=== PATIENT | female | born 1970 | race Caucasian/White ===

== ENCOUNTER 2016-10-04 20:11 | Emergency (ER) | payer OTHER ==
[2016-10-04 20:25] VITALS: TEMP 98.1; BMI 23.0
--- NOTE | 2016-10-04 22:22 | PDOC ---
History of Present Illness - General History Source: Patient <Jeffry Hamilton - Last Filed: 10/05/16 06:13> - General History Source: Patient Exam Limitations: No Limitations - History of Present Illness Initial Comments: 10/04/16 22:52 The patient is a 45-year-old female, with a significant past medical history of hypothyroidism (on Synthroid), who presents to the ED with 10 days of headache and high blood pressure today. The patient states that her headache pain is sometimes felt in her sinuses or in the back of her eyes; most of the time the pain is right-sided. Pts headache is accompanied by occasional dizziness and blurred vision. She reports taking excedrin with no relief of her symptoms. Pt went to doctors office today but he was not in. Hospital staff took her BP and sent to the pt to the ED to get an outpatient CT scan. Pt was discharged from [facility] with a prescription for 5mg of amlodipine. Pt checked her BP while at the pharmacy and noted it to be 202/112. Pt reported back to the ED for further evaluation. Upon examination, patients BP was noted to be 194/99. The patient denies any fever, chills, nausea, vomiting, diarrhea, or abdominal pain. The patient denies any numbness or tingling in her extremities. <Cara Betancur - Last Filed: 10/05/16 07:00> - General Chief Complaint: Blood Pressure Problem Stated Complaint: BLOOD PRESSURE PROBLEM Time Seen by Provider: 10/04/16 21:54 Past History - Past Medical History Hypercholesterolemia: Yes (Borderline) Kidney Stones: Yes Seizures: Yes Thyroid Disease: Yes Other medical history: Grave's disease - Surgical History Cholecystectomy: Yes - Psycho/Social/Smoking Cessation Hx Anxiety: No Suicidal Ideation: No Smoking History: Never smoked Information on smoking cessation initiated: No Hx Alcohol Use: No Drug/Substance Use Hx: No Substance Use Type: None <Jeffry Hamilton - Last Filed: 10/05/16 06:13> <Cara Betancur - Last Filed: 10/05/16 07:00> - Past Medical History Allergies/Adverse Reactions: Allergies Allergy/AdvReac Type Severity Reaction Status Date / Time No Known Allergies Allergy Verified 05/12/14 07:10 Home Medications: Ambulatory Orders Levothyroxine [Synthroid -] 50 mcg PO DAILY@0700 #30 tablet 05/14/14 Amlodipine Besylate 5 mg PO DAILY 10/04/16 Oxycodone HCl/Acetaminophen [Percocet 5-325 mg Tablet] 1 - 2 tab PO Q6H #20 tablet MDD Khari Hutsonle4 10/05/16 Review of Systems - Review of Systems Able to Perform ROS?: Yes Comments:: 10/04/16 22:54 CONSTITUTIONAL: Absent: fever, chills, diaphoresis, generalized weakness, malaise, loss of appetite HEENT: Present: blurred vision Absent: rhinorrhea, nasal congestion, throat pain, throat swelling, difficulty swallowing, mouth swelling, ear pain, eye pain CARDIOVASCULAR: Absent: chest pain, syncope, palpitations, irregular heart rate, lightheadedness , peripheral edema RESPIRATORY: Absent: cough, shortness of breath, dyspnea with exertion, orthopnea, wheezing, stridor, hemoptysis GASTROINTESTINAL: Absent: abdominal pain, abdominal distension, nausea, vomiting, diarrhea, constipation, melena, hematochezia GENITOURINARY: Absent: dysuria, frequency, urgency, hesitancy, hematuria, flank pain, genital pain MUSCULOSKELETAL: Absent: myalgia, arthralgia, joint swelling SKIN: Absent: rash, itching, pallor HEMATOLOGIC/IMMUNOLOGIC: Absent: easy bleeding, easy bruising, lymphadenopathy, frequent infections ENDOCRINE: Absent: unexplained weight gain, unexplained weight loss, heat intolerance, cold intolerance NEUROLOGIC: Present: headache, dizziness Absent: focal weakness or paresthesias, unsteady gait, seizure, mental status changes, bladder or bowel incontinence PSYCHIATRIC: Absent: anxiety, depression, suicidal or homicidal ideation, hallucinations. <Cara Betancur - Last Filed: 10/05/16 07:00> *Physical Exam - Vital Signs Last Vital Signs Temp Pulse Resp BP Pulse Ox 98.1 F 85 18 182/103 99 10/04/16 20:22 10/04/16 20:22 10/04/16 20:22 10/04/16 20:22 10/04/16 20:22 <Jeffry Hamilton - Last Filed: 10/05/16 06:13> - Vital Signs Last Vital Signs Temp Pulse Resp BP Pulse Ox 98.1 F 85 18 182/103 99 10/04/16 20:22 10/04/16 20:22 10/04/16 20:22 10/04/16 20:22 10/04/16 20:22 - Physical Exam Comments: 10/04/16 22:55 GENERAL: Well-appearing, well-nourished. No apparent distress. HEENT: Normocephalic, atraumatic. PERRL, EOM intact. CARDIOVASCULAR: Normal S1, S2. Regular rate and rhythm. PULMONARY: Clear to auscultation bilaterally. ABDOMEN: Soft, non-distended, non-tender. EXTREMITIES: Normal ROM in all four extremities. No gross deformities. SKIN: Warm, dry. No rash NEUROLOGICAL: No focal neurological deficits. <Cara Betancur - Last Filed: 10/05/16 07:00> Heart Score/ECG Review - ECG Intrepretation Comment:: 10/05/16 00:35 EKG was reviewed by Dr. Hamilton at 00:21. Impression: Sinus tachycardia. Nonspecific ST abnormality. Vent. rate: 125 bpm IL interval: 140 ms QTc: 476 ms 10/05/16 06:59 EKG was reviewed by Dr. Hamilton at 4:48. Impression: Sinus tachycardia. Nonspecific T wave abnormality. Vent. rate: 101 bpm IL interval: 116 ms QTc: 477 ms <Cara Betancur - Last Filed: 10/05/16 07:00> ED Treatment Course - LABORATORY CBC & Chemistry Diagram: 10/04/16 23:41 10/05/16 00:15 <Jeffry Hamilton - Last Filed: 10/05/16 06:13> - LABORATORY CBC & Chemistry Diagram: 10/04/16 23:41 10/05/16 00:15 - Medications Given in the ED: ED Medications Discontinued Medications Generic Name Dose Route Start Last Admin Trade Name Freq PRN Reason Stop Dose Admin Ibuprofen 800 mg 10/04/16 22:26 10/04/16 22:35 Motrin - PO 10/04/16 22:27 800 mg ONCE ONE Administration Metoclopramide HCl 10 mg 10/04/16 22:26 10/04/16 22:35 Reglan - PO 10/04/16 22:27 10 mg ONCE ONE Administration <Cara Betancur - Last Filed: 10/05/16 07:00> *DC/Admit/Observation/Transfer <Jeffry Hamilton - Last Filed: 10/05/16 06:13> - Attestations Scribe Attestion: 10/04/16 22:56 Documentation prepared by Cara Betancur, acting as medical office coordinator for Jeffry Hamilton MD. <Cara Betancur - Last Filed: 10/05/16 07:00> Diagnosis at time of Disposition: Headache Qualifiers: Headache type: unspecified Headache chronicity pattern: unspecified pattern Intractability: not intractable Qualified Code(s): R51 - Headache Hypertension Qualifiers: Hypertension type: essential hypertension Qualified Code(s): I10 - Essential ( primary) hypertension - Discharge Dispostion Disposition: HOME Condition at time of disposition: Stable - Prescriptions Prescriptions: Oxycodone HCl/Acetaminophen [Percocet 5-325 mg Tablet] 1 - 2 tab PO Q6H #20 tablet MDD Khari Eversole4 - Referrals Referrals: Nena Griffiths MD [Primary Care Provider] - - Patient Instructions Printed Discharge Instructions: DI for High Blood Pressure Additional Instructions: Please follow up with your doctor as scheduled. TAke you usual medications. Return if any problems
[2016-10-04] MEDS ORDERED: METOCLOPRAMIDE HCL 10 MG TABLET (FP) PO ONE ×2 (22:26→22:33)
[2016-10-04] MEDS ORDERED: IBUPROFEN 400 MG TABLET (FP) PO ONE ×2 (22:26→22:33)
[2016-10-04] MEDS ORDERED: hydrALAZINE HCL 20 MG/ML VIAL IVPUSH ONE (23:19)
[2016-10-04] MEDS ORDERED: hydrALAZINE HCL 20 MG/ML VIAL ONE (23:26)
[2016-10-04 23:45] LABS: BASOPHIL 0.7 % (0-2.0); EOSINOPHIL 1.4 % (0-4.5); MCH 29.3 pg (25.7-33.7); MCHC 33.7 g/dl (32.0-36.0); MEAN CELL VOLUME 86.8 fl (80-96); MEAN PLT VOLUME 10.7 fl (7.5-11.1); NEUTROPHILS 64.9 % (42.8-82.8); PLATELET COUNT 200 K/MM3 (134-434); RDW 13.1 % (11.6-15.6); WHITE BLOOD COUNT 10.8 K/mm3 (4.0-10.0)
[2016-10-05] MEDS ORDERED: METOPROLOL TARTRATE 5 MG/5 ML VIAL IVPUSH ONE (00:53)
[2016-10-05] MEDS ORDERED: METOPROLOL TARTRATE 5 MG/5 ML VIAL ONE (00:59)
[2016-10-05] MEDS ORDERED: ONDANSETRON 4 MG/2 ML VIAL IVPUSH STA ×2 (01:00→01:43)
[2016-10-05] MEDS ORDERED: ONDANSETRON 4 MG/2 ML VIAL ONE ×2 (01:00→01:46)
[2016-10-05 01:02] LABS: ANION GAP 12 (8-16); CALCIUM 10.1 mg/dL (8.5-10.1); CO2 28 mmol/L (21-32); CREATININE 0.9 mg/dL (0.55-1.02); GLUCOSE,RANDOM 143 mg/dL (74-106)
[2016-10-05 01:05] LABS: URINE APPEARANCE CLEAR; URINE BILIRUBIN NEGATIVE (NEGATIVE); URINE COLOR COLORLESS; URINE GLUCOSE (UA) NEGATIVE (NEGATIVE); URINE KETONE NEGATIVE (NEGATIVE); URINE LEUK ESTERASE NEGATIVE (NEGATIVE); URINE NITRITE NEGATIVE (NEGATIVE); URINE PROTEIN NEGATIVE (NEGATIVE); URINE UROBILINOGEN NEGATIVE E.U./dl (0.2-1.0)
[2016-10-05 01:21] LABS: TROPONIN I < 0.02 ng/ml (0.00-0.05)
[2016-10-05 01:27] LABS: URINE BLOOD 2+ (NEGATIVE)
[2016-10-05 01:29] LABS: URINE RBC 8 /hpf (0-3); URINE WBC 1 /hpf (3-5)
[2016-10-05] MEDS ORDERED: morphine CARPU-JECT 2 MG/1 ML DISP.SYRIN IVPUSH ONE (01:43)
[2016-10-05] MEDS ORDERED: morphine CARPU-JECT 4 MG/1 ML DISP.SYRIN ONE (01:46)
[2016-10-05] MEDS ORDERED: METOCLOPRAMIDE HCL INJECTION 10 MG/2 ML VIAL IVPUSH ONE (02:20)
[2016-10-05] MEDS ORDERED: METOCLOPRAMIDE HCL INJECTION 10 MG/2 ML VIAL ONE (02:20)
[2016-10-05 05:36] LABS: TROPONIN I 0.07 ng/ml (0.00-0.05)
[2016-10-05] MEDS ORDERED: OXYCODONE/APAP 5/325MG COMBO TABLET PO ONE (06:13)
[2016-10-05] MEDS ORDERED: OXYCODONE/APAP 5/325MG COMBO TABLET ONE (06:20)
[2016-10-05 06:32] VITALS: BP 141/62; PULSE 99
--- NOTE | 2016-10-05 10:22 | EKG ---
Test Reason : Blood Pressure : / mmHG Vent. Rate : 101 BPM Atrial Rate : 101 BPM P-R Int : 116 ms QRS Dur : 086 ms QT Int : 368 ms P-R-T Axes : 055 036 033 degrees QTc Int : 477 ms SINUS TACHYCARDIA NONSPECIFIC T WAVE ABNORMALITY ABNORMAL ECG WHEN COMPARED WITH ECG OF 05-OCT-2016 00:21, ST NO LONGER DEPRESSED IN ANTERIOR LEADS Confirmed by JEFFREY AUGUST MD ([id number]) on 10/05/2016 10:21:57 AM Referred By: Confirmed By:JEFFREY AUGUST MD
--- NOTE | 2016-10-05 10:27 | EKG ---
Test Reason : Blood Pressure : / mmHG Vent. Rate : 125 BPM Atrial Rate : 125 BPM P-R Int : 140 ms QRS Dur : 074 ms QT Int : 330 ms P-R-T Axes : 063 071 070 degrees QTc Int : 476 ms SINUS TACHYCARDIA NONSPECIFIC ST ABNORMALITY ABNORMAL ECG WHEN COMPARED WITH ECG OF 12-MAY-2014 08:33, NO SIGNIFICANT CHANGE WAS FOUND Confirmed by JEFFREY AUGUST MD ([id number]) on 10/05/2016 10:27:14 AM Referred By: Confirmed By:JEFFREY AUGUST MD
== END 2016-10-05 06:33 | disposition home or self-care (01) ==
LOC: JER 20:11
PROC: 3E033GC Introduction of Other Therapeutic Substance into Peripheral Vein, Percutaneous Approach (ICD-10-PCS; principal; 2016-10-04)
PROC: 3E033NZ Introduction of Analgesics, Hypnotics, Sedatives into Peripheral Vein, Percutaneous Approach (ICD-10-PCS; 2016-10-04)
DX: I10 Essential (primary) hypertension (principal); R51 Headache; E03.9 Hypothyroidism, unspecified; Z87.442 Personal history of urinary calculi
CPT/HCPCS: 36415; 80048; 81003; 81015; 82550; 84484; 84703; 85025; 93005; 93010; 99284-25

== ENCOUNTER 2017-05-26 11:38 | Emergency (ER) | payer OTHER ==
[2017-05-26 11:44] VITALS: BP 164/97; PULSE 92; TEMP 98; BMI 21.2
[2017-05-26] MEDS ORDERED: CYCLOBENZAPRINE HCL 10 MG TABLET (FP) PO ONE (13:01)
[2017-05-26] MEDS ORDERED: ACETAMINOPHEN 325 MG TABLET (FP) PO ONE (13:04)
[2017-05-26] MEDS ORDERED: ACETAMINOPHEN 325 MG TABLET (FP) ONE (13:05)
[2017-05-26] MEDS ORDERED: CYCLOBENZAPRINE HCL 10 MG TABLET (FP) ONE (13:05)
--- NOTE | 2017-05-26 13:05 | PDOC ---
History of Present Illness - General Chief Complaint: Pain, Acute Stated Complaint: NECK PAIN Time Seen by Provider: 05/26/17 12:39 Past History - Past Medical History Allergies/Adverse Reactions: Allergies Allergy/AdvReac Type Severity Reaction Status Date / Time No Known Allergies Allergy Verified 05/26/17 11:44 Home Medications: Ambulatory Orders Cyclobenzaprine HCl [Flexeril -] 10 mg PO HS #10 tablet 05/26/17 Prednisone [Deltasone] 40 mg PO DAILY #8 tablet 05/26/17 COPD: No Hypercholesterolemia: Yes (Borderline) Kidney Stones: Yes Seizures: Yes Thyroid Disease: Yes - Surgical History Cholecystectomy: Yes - Suicide/Smoking/Psychosocial Hx Smoking History: Never smoked Hx Alcohol Use: No Drug/Substance Use Hx: No Substance Use Type: None *Physical Exam - Vital Signs Last Vital Signs Temp Pulse Resp BP Pulse Ox 98 F 92 H 18 164/97 05/26/17 11:40 05/26/17 11:40 05/26/17 11:40 05/26/17 11:40 *DC/Admit/Observation/Transfer Diagnosis at time of Disposition: Neck pain - Discharge Dispostion Disposition: HOME Condition at time of disposition: Good Admit: No - Referrals Referrals: Nena Griffiths MD [Primary Care Provider] - - Patient Instructions Printed Discharge Instructions: DI for Neck Pain Additional Instructions: Your x-ray today was negative for fractures. Please follow-up with with your spine doctor from [place] on 05/30/2017 as already planned. Please take prednisone 40 mg for the next 4 days to help with the pain. You may also take the Flexeril at night to help with the pain. Please use heating pads to the area. He may also take Tylenol as needed for pain. CT were department if you have numbness and tingling down her arms, weakness, lightheadedness, or any changes in your symptoms. - Post Discharge Activity Forms/Work/School Notes: Back to Work
[2017-05-26] MEDS ORDERED: predniSONE 20 MG TABLET (UD) PO ONE (13:58)
[2017-05-26] MEDS ORDERED: predniSONE 20 MG TABLET (UD) ONE (14:02)
== END 2017-05-26 14:07 | disposition home or self-care (01) ==
LOC: JERFT 11:38
DX: M54.2 Cervicalgia (principal); E78.00 Pure hypercholesterolemia, unspecified; E07.9 Disorder of thyroid, unspecified; Z87.442 Personal history of urinary calculi; Z86.69 Personal history of other diseases of the nervous system and sense organs
CPT/HCPCS: 72050-TC-FY; 99281-25

== ENCOUNTER 2018-06-08 20:03 | Emergency (ER) | payer OTHER ==
[2018-06-08 20:20] VITALS: BP 177/102; PULSE 84; TEMP 98.1; BMI 28.3
== END 2018-06-08 21:22 | disposition left against medical advice (07) ==
LOC: JER 20:03
DX: Z53.21 Procedure and treatment not carried out due to patient leaving prior to being seen by health care provider (principal)
CPT/HCPCS: 99281-25